=== PATIENT | male | born 1965 | race Caucasian/White ===

== ENCOUNTER → 2019-04-12 | Day surgery (SDC) | payer OTHER ==
[~2019-04-12] MED LIST: CEFAZOLIN/SWI 1gm 1 GM/10 ML SYR ONE; FENTANYL CITR 100 MCG/2 ML ONE; GLYCOPYRROLATE 0.2 MG/ML SYR ONE; HYDROMORPHONE HCL 1 MG/ML INJ ONE; KETOROLAC 30 MG/ML INJ ONE; LIDOCAINE 1% MPF 5 ML VIAL ONE; MIDAZOLAM HCL 2 MG/2 ML INJ ONE; NEOSTIGMINE 1 MG/ML -10 ML VIAL ONE; ONDANSETRON 4 MG/2 ML VIAL ONE; PROMETHAZINE INJ 25 MG/ML AMP ONE; ROCURONIUM 50 MG/5 ML VIAL IV ONE; Ringers Lactate 1,000 ML IV ONE; dexAMETHasone 10 MG/ML VIAL ONE; propofoL 200 MG/20 ML VIAL IV ONE
--- OUTSIDE RECORDS SUMMARY | 2019-04-12 07:43 | XMS REPORT | Summary of Care ---
:1965 Author Organization [facility] - Health Address [address] [place] [address] Care Team Providers Name Role Phone Pcp, Patient Does Not Have A Primary Care Provider Encounter Details Date Type Department Care Team Description 12/09/2018 Orders Only [facility] Doctor Unassigned, No [address] [facility] [place] [address] [address] [place] [address] Allergies No Known Allergiesdocumented as of this encounter (statuses as of 12/09/2018) Medications Medication Sig Dispensed Refills Start Date End Date Status ranitidine (ZANTAC) 150 Take 1 Tab by 30 Tab 5 10/06/2013 Active mg tabletIndications: mouth at bedtime. Reflux esomeprazole (NEXIUM) Take 1 Cap by 30 Cap 5 05/30/2014 Active 40 mg capsule mouth daily with breakfast. fluticasone (FLONASE) Use 2 Sprays in 1 Bottle 5 05/30/2014 Active 50 mcg/actuation nasal each nostril sprayIndications: daily. Unspecified nasal polyp, S/P FESS (functional endoscopic sinus surgery), Anosmia, Rhinitis, allergic documented as of this encounter (statuses as of 12/09/2018) Active Problems Patient Care Coordination Note Weight Loss Plan of Care My Weight Loss Goals are the following: Obtain a healthy BMI (Body Mass Index). My current BMI is: Body mass index is 32.41 kg/(m^2). o Obesity is a BMI above 30. o Overweight is a BMI of 25 to 29.9. Work to lose 10% of my current weight over the next 12 monthsMy Weight Loss Care Plan includes the following: Start exercise:o Star t with light exercise, such as walking and gradually increase how hard I exercise and for how milvia Goal: work up to exercise 4 to 6 times a week for 30 to 60 minutes at a time (minimum 150 minutes per week best for good health) Follow a healthy dieto Journal what I am currently eating and drinking nowo Decrease portion sizes Pay attention to my serving sizes Eat until satisfied rather than full Use smaller plateso Eat fewer empty calories such as desserts, sodas, candy, chipso Focus on eating foods from 5 food group such as fruits, vegetables, whole grains, low fat dairy products and sanjeev n protein foodso When eating out, make better choices Pay attention to what and how much I eat and drink Pay attention to how the food is preparedo Cook more at homeOnline Resource: www.choosemyplate.gov Problem Noted Date Nasal polyp 03/01/2013 documented as of this encounter (statuses as of 12/09/2018) Immunizations Name Administration Dates Next Due Influenza Virus Vaccine (3+ yrs) 03/01/2013 documented as of this encounter Social History Tobacco Use Types Packs/Day Years Used Date Never Smoker Smokeless Tobacco: Never Used Alcohol Use Drinks/Week oz/Week Comments Yes 7-14 Standard drinks or equivalent 3.5 - 7.0 5-6 weekly Sex Assigned at Date Recorded Not on file Job Start Date Occupation Industry Not on file Not on file Not on file Travel History Travel Start Travel End No recent travel history available. documented as of this encounter Last Filed Vital Signs Not on filedocumented in this encounter Plan of Treatment Date Type Specialty Care Team Description 12/09/2018 Office Visit [facility]ology Chapin Grant MD [facility] [address] [id number] [place], [place] [id number] Health Maintenance Due Date Last Done Comments DTaP,Tdap,and Td Vaccines (1 - 08/23/1986 Tdap) COLONOSCOPY 08/23/2017 Zoster Recombinant Vaccine 08/23/2017 (SHINGRIX) (1 of 2) INFLUENZA VACCINE (#1) 2018 03/01/2013 PNEUMOCOCCAL 0-64 YEARS COMBINED Aged Out No longer eligible based on SERIES patient's age to complete this topic documented as of this encounter Implants Implanted Type Area Acid Loader Device Shelf Model / Identifier Expiration Date Serial / Lot Tube, Gyrus Ear Arnaud Vent #[id number] - [id number] Bilateral: Gyrus 12/04/2021 [id number] / Implanted: Qty: 2 on 10/15/2012 by Earl Amor MD at [facility] / [id number] documented as of this encounter Procedures Procedure Name Priority Date/Time Associated Diagnosis Comments [facility] PATIENT FINANCIAL Routine 12/09/2018 11:59 AM POLICY CDT NO SHOW OR MISSED Routine 12/09/2018 11:59 AM APPOINTMENT POLICY CDT ACKNOWLEDGEMENT NOTICE OF PRIVACY Routine 12/09/2018 11:58 AM PRACTICES CDT CONSENT/REFUSAL FOR Routine 12/09/2018 11:58 AM DIAGNOSIS AND TREATMENT CDT ASSIGNMENT OF BENEFITS Routine 12/09/2018 11:57 AM CDT documented in this encounter Results Not on filedocumented in this encounter Insurance Payer Benefit Plan / Group Subscriber ID Effective Dates Phone Address Type AETNA AETNA [facility] [id number] 2017-Present PPO documented as of this encounter
--- OUTSIDE RECORDS SUMMARY | 2019-04-12 07:44 | XMS REPORT | Summary of Care ---
:1965 Author Organization [facility] Address [address] [place] [id number] Care Team Providers Name Role Phone Pcp, Patient Does Not Have A Primary Care Provider Reason for Referral MRI/CAT Scan (Routine) Status Reason Specialty Diagnoses / Referred By Referred To Procedures Contact Contact New Request Diagnostic Diagnoses Hypertrophy of inferior nasal turbinate Nasal obstruction Seasonal allergic rhinitis due to pollen ETD (Eustachian tube dysfunction), bilateral Conductive hearing loss, bilateral Communication impairment Tinnitus, bilateral Chapin Grant, Radiology Procedures CT SINUS W WO CONTRAST [address] [place] [address] [id number] [place] [address] Reason for Visit Reason Comments Follow-up Pt is here today for a f/u from nasal congestion and he had an audio done today as well. Encounter Details Date Type Department Care Team Description 12/09/2018 Office Visit [facility] Ear, Nose Chapin Grant, Hypertrophy of inferior nasal turbinate (Primary Dx); and Throat-Loraine Baires MD Nasal obstruction; [address] Seasonal allergic rhinitis due to pollen; [place] [id number] ETD (Eustachian tube dysfunction), bilateral; [place], [place] Conductive hearing loss, bilateral; [id number] Communication impairment; [phone] Tinnitus, bilateral Allergies No Known Allergiesdocumented as of this encounter (statuses as of 12/09/2018) Medications Medication Sig Dispensed Refills Start End Date Status Date ranitidine (ZANTAC) Take 1 Tab by 30 Tab 5 Active 150 mg mouth at 4 tabletIndications: bedtime. Reflux esomeprazole (NEXIUM) Take 1 Cap by 30 Cap 5 Active 40 mg capsule mouth daily 5 with breakfast. fluticasone (FLONASE) Use 2 Sprays 1 Bottle 5 Active 50 mcg/actuation nasal in each 5 sprayIndications: nostril daily. Unspecified nasal polyp, S/P FESS (functional endoscopic sinus surgery), Anosmia, Rhinitis, allergic methylPREDNISolone Take by mouth 21 Each 0 Active (MEDROL, ROCCO,) 4 mg SEE-INSTRUCTIO 9 tabletsIndications: NS. follow Hypertrophy of package inferior nasal directions turbinate, Nasal obstruction, Seasonal allergic rhinitis due to pollen, ETD (Eustachian tube dysfunction), bilateral, Conductive hearing loss, bilateral, Communication impairment, Tinnitus, bilateral azelastine-fluticasone Use 1 [place] in 23 g 11 Active (DYMISTA) 137-50 each nostril 2 9 mcg/spray nasal (two) times sprayIndications: daily. Hypertrophy of inferior nasal turbinate, Nasal obstruction, Seasonal allergic rhinitis due to pollen, ETD (Eustachian tube dysfunction), bilateral, Conductive hearing loss, bilateral, Communication impairment, Tinnitus, bilateral cefdinir 300 mg Take 1 capsule 28 capsule 0 12/24/19 Active capsuleIndications: by mouth 2 9 19 Hypertrophy of (two) times inferior nasal daily for 14 turbinate, Nasal days. obstruction, Seasonal allergic rhinitis due to pollen, ETD (Eustachian tube dysfunction), bilateral, Conductive hearing loss, bilateral, Communication impairment, Tinnitus, bilateral cefdinir 300 mg Take 1 capsule 14 capsule 0 12/10/19 Discontinued capsuleIndications: by mouth every 9 19 Hypertrophy of 24 inferior nasal (twenty-four) turbinate, Nasal hours for 14 obstruction, Seasonal days. allergic rhinitis due to pollen, ETD (Eustachian tube dysfunction), bilateral, Conductive hearing loss, bilateral, Communication impairment, Tinnitus, bilateral documented as of this encounter (statuses as [...] of this encounter Last Filed Vital Signs Vital Sign Reading Time Taken Comments Blood Pressure - - Pulse - - Temperature 36.9 C (98.5 F) 12/09/2018 1:14 PM CDT Respiratory Rate - - Oxygen Saturation - - Inhaled Oxygen Concentration - - Weight 102.4 kg (225 lb 12.8 oz) 12/09/2018 1:14 PM CDT Height 182.9 cm (6') 12/09/2018 1:14 PM CDT Body Mass Index 30.62 12/09/2018 1:14 PM CDT documented in this encounter Progress Notes Willis Escalona MD - 12/09/2018 1:00 PM CDT Name: Gumaro Armendariz MR No: [id number] Provider: Chapin Grant M.D. Date: 12/09/2018 History: Chief Complaint: Tinnitus, aural fullness, hyposmia History of Present Illness: Gumaro Armendariz is a 53 year old male sp FESS x2 last 2012 for CRS presents with years long sensation of aural fullness and middle ear effusion bilaterally. Patient has had a left sided myringotomy and tubeplacement in 2014. Patient states that following the tube placement patient had resolution of this symptom. Additionally, patient has bilateral continuous tinnitus which has worsened since we saw him last. Finally, patient endorses worsened nasal congestion/obstruction, rhinorrhea, and sneezing in thepast several weeks. He has stable hyposmia present since his last sinus surgery, and denies facial pain /pressure, purulent rhinorrhea. Patient has used topical nasal steroids, oral antihistamines, and singulair in the past but is currently not on any treatment. Past Medical Hx: Past Medical History: Diagnosis Date Allergic rhinitis, cause unspecified Obstructive sleep apnea Pneumothorax, spontaneous, tension Snoring Past Surgical Hx: Past Surgical History: Procedure Laterality Date BALLOON SINUPLASTY (SHX) 10/15/2012 Surgeon: Chapin Grant MD; Location: [facility] BALLOON SINUPLASTY (SHX) 03/14/2013 BALLOON SINUPLASTY (SHX) 03/14/2013 Surgeon: Chapin Grant MD; Location: [facility] CHEST TUBE INSERTION, POST PNE pnuemothorax EXCISION OF UVULA FUNCTIONAL ENDOSCOPIC SINUS SURGERY 10/15/2012 Surgeon: Chapin Grant MD; Location: [facility] OR [facility] FUNCTIONAL ENDOSCOPIC SINUS SURGERY 03/14/2013 FUNCTIONAL ENDOSCOPIC SINUS SURGERY 03/14/2013 Surgeon: Chapin Grant MD; Location: [facility] OR [facility] LUNG CONDITION MYRINGOTOMY MYRINGOTOMY WITH TUBE INSERTION 10/15/2012 Surgeon: Chapin Grant MD; Location: [facility] OR [facility] REPAIR OF NASAL SEPTUM SEPTOPLASTY 03/14/2013 SEPTOPLASTY 03/14/2013 Surgeon: Chapin Grant MD; Location: [facility] OR [facility] TONSILLECTOMY WITH ADENOIDECTOMY TURBINATE REDUCTION 10/15/2012 Surgeon: Chapin Grant MD; Location: [facility] OR [facility] UVULOPHARYNGOPALATOPLASY VASECTOMY VIDEO ASSISTED THORASCOPIC PNEUMONECTOMY (SHX) Family History: Family History Problem Relation Age of Onset No Significant Medical Problems Mother No Significant Medical Problems Father No Significant Medical Problems Brother Genetic Son PKU Genetic Son PKU Social History: Social History Occupational History Occupation: [employer] Employer: [employer] Occupation: teacher Occupation: principal Tobacco Use Smoking status: Never Smoker Smokeless tobacco: Never Used Substance and Sexual Activity Alcohol use: Yes Alcohol/week: 3.5 - 7.0 oz Types: 7 - 14 drink(s) per week Comment: 5-6 weekly Drug use: No Sexual activity: Not on file Medications: Current Outpatient Medications Medication Sig esomeprazole (NEXIUM) 40 mg capsule Take 1 Cap by mouth daily with breakfast. fluticasone (FLONASE) 50 mcg/actuation nasal spray Use 2 Sprays in each nostril daily. ranitidine (ZANTAC) 150 mg tablet Take 1 Tab by mouth at bedtime. Allergies to Meds: Patient has no known allergies. Review of systems: CONSTITUTIONAL: negative; EYES: negative; ENT: See HPI; CARDIOVASCULAR: negative; RESPIRATORY: negative; GASTROINTESTINAL: negative; GENITOURINARY: negative; MUSCULOSKELETAL: negative; SKIN: negative; NEUROLOGICAL: negative; PSYCHIATRIC: negative; ENDOCRINE: negative; HEMATOLOGIC/ LYMPHATIC: negative ; ALLERGIC/ IMMUNOLOGIC: negative. Physical Exam: CONSTITUTIONAL:No acute distress Vital Signs:Temp 36.9 C (98.5 F) (Tympanic) | Ht 6' (1.829 m) | Wt 225 lb 12.8 oz (102.4kg) | BMI 30.62 kg/m EYES:Normal gaze alignment EARS, NOSE, MOUTH, AND THROAT: Otoscopic Examination: Binocular Microscope: RIGHT EAR Ear Canal: Normal. Tympanic Membrane: significant pars flacida retraction without keratin debris. 256: - 512: - 1024: + LEFT EAR Ear Canal: Normal. Tympanic Membrane: mild pars flacida retraction without keratin debris. 256: - 512: + 1024: + External Ears: Unremarkable. External Nose: unremarkable. Nasal Exam: see below. Oral Exam: Unremarkable. Lips, Teeth, and Gums: unremarkable. Larynx: Normal Voice.CARDIOVASCULAR:Extremities were warm. RESPIRATORY:There was normal chest expansion. SKIN:Normal. NEUROLOGICAL:Cranial nerves II-XII intact. PSYCHIATRIC: Normal Affect. HEMATOLOGICAL/ LYMPHATIC:No cervical lymphadenopathy. PROCEDURE: Binocular Microscopy CPT 44106 as described above. PROCEDURE: Diagnostic Nasal Endoscopy CPT 21710 as described above. Procedure Note: Rigid sinonasal endoscopy was performed in clinic for better visualization of the patient's nasal cavity and sinuses. Topical anesthesia and decongestion were used. Using a 0 degree flexible endoscope, the nasal cavity was evaluated. Septum was found to be midline. The inferior turbinates were hypertrophied. The middle turbinate on R was polypoid with polyp in ethmioid cavity and pus surrounding, on the L the middle turbinate was lateralized. The nasopharynx showed cobblestonning. Sphenoethmoidal recess showed purulent drainage. Maxillary sinus unable to visualize. The patient tolerated the procedure well with no complications Risk: moderate DIAGNOSES: ICD-10-CM ICD-9-CM 1. Hypertrophy of inferior nasal turbinate J34.3 478.0 2. Nasal obstruction J34.89 478.19 3. Seasonal allergic rhinitis due to pollen J30.1 477.0 4. ETD (Eustachian tube dysfunction), bilateral H69.83 381.81 5. Conductive hearing loss, bilateral H90.0 389.06 6. Communication impairment F80.9 307.9 7. Tinnitus, bilateral H93.13 388.30 Assessment and Plan: Gumaro Armendariz is a 53 year old male with history of allergy , CRS, tinnitus, and chronic eustachian tube dysfunction which is now deforming his tympanic membranes and acute sinusitistoday on scope. We will treat this acute infection and obtain a CT sinus. This patient very likely will need revision, BMT and sinus surgery. Additionally, this patient would likely benefit from ET dilation. - omnicef 300mg BID for 14 days - medrol dose pack - dymista 1 spray BID - CT sinus following above Willis Escalona MD Otolaryngology--Head and Neck Surgery documented in this encounter Plan of Treatment Date Type Specialty Care Team Description 12/22/2018 Appointment Radiology Chapin Grant MD [address] [facility] [id number] [place] [address] Name Type Priority Associated Diagnoses Order Schedule CT SINUS W WO CONTRAST IMAGING Routine Hypertrophy of inferior Expected: , nasal turbinate Expires: 12/10/2019 Nasal obstruction Seasonal allergic rhinitis due to pollen ETD (Eustachian tube dysfunction), bilateral Conductive hearing loss, bilateral Communication impairment Tinnitus, bilateral Health Maintenance Due Date Last Done Comments DTaP,Tdap,and Td Vaccines (1 - 08/23/1986 Tdap) COLONOSCOPY 08/23/2017 Zoster Recombinant Vaccine 08/23/2017 (SHINGRIX) (1 of 2) INFLUENZA VACCINE (#1) 2018 03/01/2013 PNEUMOCOCCAL 0-64 YEARS COMBINED Aged Out No longer eligible based on SERIES patient's age to complete this topic documented as of this encounter Implants Implanted Type Area Debarker Operator Device Shelf Model / Identifier Expiration Date Serial / Lot Tube, Gyrus Ear Arnaud Vent #[id number] - [id number] Bilateral: Gyrus 12/04/2021 [id number] / Implanted: Qty: 2 on 10/15/2012 by Earl Amor MD at [facility] / [id number] documented as of this encounter Results Not on filedocumented in this encounter Visit Diagnoses Diagnosis Hypertrophy of inferior nasal turbinate - Primary Hypertrophy of nasal turbinates Nasal obstruction Other diseases of nasal cavity and sinuses Seasonal allergic rhinitis due to pollen ETD (Eustachian tube dysfunction), bilateral Conductive hearing loss, bilateral Communication impairment Other and unspecified special symptom or syndrome, not elsewhere classified Tinnitus, bilateral Unspecified tinnitus documented in this encounter (Work) documented as of this encounter"
--- OUTSIDE RECORDS SUMMARY | 2019-04-12 07:44 | XMS REPORT | Summary of Care ---
:1965 Author Organization [facility] Address [address] [place] [address] Care Team Providers Name Role Phone Pcp, Patient Does Not Have A Primary Care Provider Reason for Referral MRI/CAT Scan (Routine) Status Reason Specialty Diagnoses / Referred By Referred To Procedures Contact Contact Closed Diagnostic Diagnoses Hypertrophy of inferior nasal turbinate Nasal obstruction Seasonal allergic rhinitis due to pollen ETD (Eustachian tube dysfunction), bilateral Conductive hearing loss, bilateral Communication impairment Tinnitus, bilateral Chapin Grant MD Radiology Procedures CT SINUS W WO CONTRAST [address] [place] [address] MRI/CAT Scan (Routine) Status Reason Specialty Diagnoses / Referred By Referred To Procedures Contact Contact Closed Diagnostic Diagnoses Hypertrophy of inferior nasal turbinate Nasal obstruction Seasonal allergic rhinitis due to pollen ETD (Eustachian tube dysfunction), bilateral Conductive hearing loss, bilateral Communication impairment Tinnitus, bilateral Chapin Grant MD Radiology Procedures CT SINUS W WO CONTRAST [address] [place] [address] Reason for Visit MRI/CAT Scan (Routine) Status Reason Specialty Diagnoses / Referred By Referred To Procedures Contact Contact Closed Diagnostic Diagnoses Hypertrophy of inferior nasal turbinate Nasal obstruction Seasonal allergic rhinitis due to pollen ETD (Eustachian tube dysfunction), bilateral Conductive hearing loss, bilateral Communication impairment Tinnitus, bilateral Chapin Grant MD Radiology Procedures CT SINUS W WO CONTRAST [address] [place] [address] Encounter Details Date Type Department Care Team Description 12/22/2018 Hospital Encounter [facility] Chapin Powers MD Arrived [facility] [address] Tomography [id number] [address] [place] [address] [phone] Allergies No Known Allergiesdocumented as of this encounter (statuses as of 12/23/2018) Medications Medication Sig Dispensed Refills Start Date End Date Status ranitidine (ZANTAC) 150 Take 1 Tab by 30 Tab 5 10/06/2013 Active mg tabletIndications: mouth at Reflux bedtime. esomeprazole (NEXIUM) 40 Take 1 Cap by 30 Cap 5 05/30/2014 Active mg capsule mouth daily with breakfast. fluticasone (FLONASE) 50 Use 2 Sprays in 1 Bottle 5 05/30/2014 Active mcg/actuation nasal each nostril sprayIndications: daily. Unspecified nasal polyp, S/P FESS (functional endoscopic sinus surgery), Anosmia, Rhinitis, allergic methylPREDNISolone Take by mouth 21 Each 0 12/09/2018 Active (MEDROL, ROCCO,) 4 mg SEE-INSTRUCTIONS tabletsIndications: . follow package Hypertrophy of inferior directions nasal turbinate, Nasal obstruction, Seasonal allergic rhinitis due to pollen, ETD (Eustachian tube dysfunction), bilateral, Conductive hearing loss, bilateral, Communication impairment, Tinnitus, bilateral azelastine-fluticasone Use 1 [place] in 23 g 11 12/09/2018 Active (DYMISTA) 137-50 each nostril 2 mcg/spray nasal (two) times sprayIndications: daily. Hypertrophy of inferior nasal turbinate, Nasal obstruction, Seasonal allergic rhinitis due to pollen, ETD (Eustachian tube dysfunction), bilateral, Conductive hearing loss, bilateral, Communication impairment, Tinnitus, bilateral cefdinir 300 mg Take 1 capsule 28 capsule 0 12/09/2018 Active capsuleIndications: by mouth 2 (two) 9 Hypertrophy of inferior times daily for nasal turbinate, Nasal 14 days. obstruction, Seasonal allergic rhinitis due to pollen, ETD (Eustachian tube dysfunction), bilateral, Conductive hearing loss, bilateral, Communication impairment, Tinnitus, bilateral documented as of this encounter (statuses as of 12/23/2018) Active Problems Patient Care Coordination Note Weight [...] is preparedo Cook more at homeOnline Resource: www.Single Touch Systemsmyplate.gov Problem Noted Date Nasal polyp 03/01/2013 documented as of this encounter (statuses as of 12/23/2018) Immunizations Name Administration Dates Next Due Influenza [...] Treatment Date Type Specialty Care Team Description 12/30/2018 Office Visit Otolaryngology Chapin Grant MD [id number] [place] [address] [phone] Name Type Priority Associated Diagnoses Order Schedule POCT CREATININE LAB Routine Hypertrophy of inferior ONCE for 1 Occurrences nasal turbinate starting 12/22/2018 until Nasal obstruction 12/22/2018 Seasonal allergic rhinitis due to pollen Tinnitus, bilateral Nasal polyp Health Maintenance Due Date Last Done Comments DTaP,Tdap,and Td Vaccines (1 - 08/23/1986 Tdap) COLONOSCOPY 08/23/2017 Zoster Recombinant Vaccine 08/23/2017 (SHINGRIX) (1 of 2) INFLUENZA VACCINE (#1) 2018 03/01/2013 PNEUMOCOCCAL 0-64 YEARS COMBINED Aged Out No longer eligible based on SERIES patient's age to complete this topic documented as of this encounter Implants Implanted Type Area Faculty Research Assistant Device Shelf Model / Identifier Expiration Date Serial / Lot Tube, Gyrus Ear Arnaud Vent #[id number] - [id number] Bilateral: Gyrus 12/04/2021 [id number] / Implanted: Qty: 2 on 10/15/2012 by Earl Amor MD at [facility] / [id number] documented as of this encounter Procedures Procedure Name Priority Date/Time Associated Diagnosis Comments CT SINUS W WO Routine 12/22/2018 4:41 PM Hypertrophy of Results for this CONTRAST CDT inferior nasal procedure are in turbinate the results Nasal obstruction section. Seasonal allergic rhinitis due to pollen ETD (Eustachian tube dysfunction), bilateral Conductive hearing loss, bilateral Communication impairment Tinnitus, bilateral documented in this encounter Results CT SINUS W WO CONTRAST (12/22/2018 4:41 PM CDT) Specimen Impressions Performed At PACS/VR/DOSE Postsurgical changes of FESS, as detailed above. Mild mucosal inflammatory changes of the frontal, ethmoidal and maxillary sinuses with opacification of the frontal osteotomies noted. The remainder of paranasal sinuses and drainage pathways are clear. Narrative Performed At * * * * * * * * ORIGINAL REPORT * * * * * * * * PACS/VR/DOSE EXAM: CT SINUS W WO CONTRAST HISTORY: CRS TECHNIQUE: CT of the paranasal sinuses was performed without intravenous contrast. Sagittal and coronal reformats were generated. COMPARISON: None. FINDINGS: Postsurgical changes of bilateral maxillary antrostomy, partial internal ethmoidectomies, frontal osteotomies and sphenoidotomies noted. Mild mucoperiosteal thickening of the bilateral frontal sinuses. There is complete opacification of the bilateral frontal osteotomies. There is opacification of the residual ethmoidal air cells. Ethmoidal roofs are symmetric. Lamina papyracea is intact bilaterally. Mild mucoperiosteal thickening of the bilateral maxillary sinuses. Antrostomies are patent. The sphenoid sinuses are clear. Sphenoid septum is deviated to the left side and enters into the medial wall of the left carotid canal. Sphenoidotomies are patent. Nasal septum is midline. Turbinates morphology is unremarkable. Nasal cavities are clear. The mastoid air cells are clear. The visualized intracranial structures are unremarkable. Procedure Note [facility], Radiant Results Inft User - 12/22/2018 4:53 PM CDT * * * * * * * * ORIGINAL REPORT * * * * * * * * EXAM: CT SINUS W WO CONTRAST HISTORY: CRS TECHNIQUE: CT of the paranasal sinuses was performed without intravenous contrast. Sagittal and coronal reformats were generated. COMPARISON: None. FINDINGS: Postsurgical changes of bilateral maxillary antrostomy, partial internal ethmoidectomies, frontal osteotomies and sphenoidotomies noted. Mild mucoperiosteal thickening of the bilateral frontal sinuses. There is complete opacification of the bilateral frontal osteotomies. There is opacification of the residual ethmoidal air cells. Ethmoidal roofs are symmetric. Lamina papyracea is intact bilaterally. Mild mucoperiosteal thickening of the bilateral maxillary sinuses. Antrostomies are patent. The sphenoid sinuses are clear. Sphenoid septum is deviated to the left side and enters into the medial wall of the left carotid canal. Sphenoidotomies are patent. Nasal septum is midline. Turbinates morphology is unremarkable. Nasal cavities are clear. The mastoid air cells are clear. The visualized intracranial structures are unremarkable. IMPRESSION Postsurgical changes of FESS, as detailed above. Mild mucosal inflammatory changes of the frontal, ethmoidal and maxillary sinuses with opacification of the frontal osteotomies noted. The remainder of paranasal sinuses and drainage pathways are clear. Performing Organization Address City/State/Zipcode Phone Number PACS/VR/DOSE documented in this encounter Visit Diagnoses Diagnosis Nasal polyp - Primary Unspecified nasal polyp Hypertrophy of inferior nasal turbinate Hypertrophy of nasal turbinates Nasal obstruction Other diseases of nasal cavity and sinuses Seasonal allergic rhinitis due to pollen ETD (Eustachian tube dysfunction), bilateral Conductive hearing loss, bilateral Communication impairment Other and unspecified special symptom or syndrome, not elsewhere classified Tinnitus, bilateral Unspecified tinnitus documented in this encounter Administered Medications Medication Order MAR Action Action Date Dose Rate Site iohexol (OMNIPAQUE 350 BULK-100 Given 12/22/2018 4:38 PM CDT 100 mL mL) injection 100 mL 100 mL, Intravenous, ONCE, 1 dose, 12/22/18 at 1630, Routine documented in this encounter (Work) documented as of this encounter
--- OUTSIDE RECORDS SUMMARY | 2019-04-12 07:44 | XMS REPORT | Summary of Care ---
:1965 Author Organization [facility] - Health Address [address] [place] [address] Care Team Providers Name Role Phone Pcp, Patient Does Not Have A Primary Care Provider Encounter Details Date Type Department Care Team Description 12/22/2018 Orders Only [facility] Doctor Unassigned, No [address] [facility] Name [place] [id number] [address] [place] [address] Allergies No Known Allergiesdocumented as of this encounter (statuses as of 12/22/2018) Medications Medication Sig Dispensed Refills Start Date [...] Communication impairment, Tinnitus, bilateral azelastine-fluticasone Use 1 [place] in 23 g 11 12/09/2018 Active (DYMISTA) [...] as of this encounter (statuses as of 12/22/2018) Active Problems Patient Care Coordination Note Weight [...] as of this encounter (statuses as of 12/22/2018) Immunizations Name Administration Dates Next Due Influenza [...] Appointment Radiology Chapin Grant MD [address] [place], [place] [phone] 12/30/2018 Office Visit Otolaryngology Chapin Grant MD [address] [facility] [address] [place], [place] [phone] Health Maintenance Due Date Last Done Comments DTaP,Tdap,and Td Vaccines (1 - 08/23/1986 Tdap) COLONOSCOPY 08/23/2017 Zoster Recombinant Vaccine 08/23/2017 (SHINGRIX) (1 of 2) INFLUENZA VACCINE (#1) 2018 03/01/2013 PNEUMOCOCCAL 0-64 YEARS COMBINED Aged Out No longer eligible based on SERIES patient's age to complete this topic documented as of this encounter Implants Implanted Type Area Photographic Restorer Device Shelf Model / Identifier Expiration Date Serial / Lot Tube, Gyrus Ear Arnaud Vent #[id number] - [id number] TUBE Bilateral: Gyrus 12/04/2021 [id number] / Implanted: Qty: 2 on 10/15/2012 by Earl Amor MD at [facility] Ear / [id number] documented as of this encounter Procedures Procedure Name Priority Date/Time Associated Diagnosis Comments ASSIGNMENT OF BENEFITS Routine 12/22/2018 3:56 PM CDT documented in this encounter Results Not on filedocumented in this encounter Insurance Payer Benefit Plan / Group Subscriber ID Effective Dates Phone Address Type AETNA AETNA [facility] [id number] 2017-Present PPO documented as of this encounter
--- OUTSIDE RECORDS SUMMARY | 2019-04-12 07:44 | XMS REPORT | Summary of Care ---
:1965 Author Organization [facility] Address [address] [place] [address] Care Team Providers Name Role Phone Pcp, [...] Radiology Procedures CT SINUS W WO CONTRAST [address] [place] [address] [id number] [place] [address] Reason for Visit Reason Comments Follow-up Pt is here today for a f/u from nasal congestion and he had an audio done today as well. Encounter Details Date Type Department Care Team Description 12/09/2018 Office Visit [facility] Ear, Nose Chapin Grnat, Hypertrophy of inferior nasal turbinate (Primary Dx); and Throat-Loraine Baires MD Nasal obstruction; [address] Seasonal allergic rhinitis due to pollen; [place] [id number] ETD (Eustachian tube dysfunction), bilateral; [place], [place] Conductive hearing loss, bilateral; [phone] Communication impairment; [phone] Tinnitus, bilateral Allergies No Known Allergiesdocumented as [...] Communication impairment, Tinnitus, bilateral azelastine-fluticasone Use 1 [place] in 23 g 11 Active (DYMISTA) 137-50 [...] PM CDT Name: Gumaro Armendariz MR No: [id number] Provider: Chapin Grant M.D. Date: 12/09/2018 History: [...] (SHX) 10/15/2012 Surgeon: Chapin Grant MD; Location: [facility] BALLOON SINUPLASTY (SHX) 03/14/2013 BALLOON SINUPLASTY (SHX) 03/14/2013 Surgeon: Chapin Grant MD; Location: [facility] CHEST TUBE INSERTION, POST PNE pnuemothorax EXCISION OF UVULA FUNCTIONAL ENDOSCOPIC SINUS SURGERY 10/15/2012 Surgeon: Chapin Grant MD; Location: [facility] FUNCTIONAL ENDOSCOPIC SINUS SURGERY 03/14/2013 FUNCTIONAL ENDOSCOPIC SINUS SURGERY 03/14/2013 Surgeon: Chapin Grant MD; Location: [facility] LUNG CONDITION MYRINGOTOMY MYRINGOTOMY WITH TUBE INSERTION 10/15/2012 Surgeon: Chapin Grant MD; Location: [facility] REPAIR OF NASAL SEPTUM SEPTOPLASTY 03/14/2013 SEPTOPLASTY 03/14/2013 Surgeon: Chapin Grant MD; Location: [facility] TONSILLECTOMY WITH ADENOIDECTOMY TURBINATE REDUCTION 10/15/2012 Surgeon: Chapin Grant MD; Location: [facility] UVULOPHARYNGOPALATOPLASY VASECTOMY VIDEO ASSISTED THORASCOPIC PNEUMONECTOMY (SHX) Family History: Family History Problem Relation Age of Onset No Significant Medical Problems Mother No Significant Medical Problems Father No Significant Medical Problems Brother Genetic Son PKU Genetic Son PKU Social History: Social History Occupational History Occupation: [employer] Employer: [employer] Occupation: teacher Occupation: principal Tobacco Use Smoking [...] LYMPHATIC:No cervical lymphadenopathy. PROCEDURE: Binocular Microscopy CPT 72608 as described above. PROCEDURE: Diagnostic Nasal Endoscopy CPT 34057 as described above. Procedure Note: Rigid sinonasal [...] Appointment Radiology Chapin Grant MD [address] [facility] [address] [place] [address] Name Type Priority Associated Diagnoses [...] of this encounter Implants Implanted Type Area Locker Room Clerk Device Shelf Model / Identifier Expiration Date Serial / Lot Tube, Gyrus Ear Arnaud Vent #[id number] - [id number] TUBE Bilateral: Gyrus 12/04/2021 [id number] / Implanted: Qty: 2 on 10/15/2012 by Earl Amor MD at [facility] AT [facility] / [id number] documented as of this encounter Results Not [...]
--- OUTSIDE RECORDS SUMMARY | 2019-04-12 07:44 | XMS REPORT | Summary of Care ---
:1965 Author Organization [facility] Address [address] [place] [address] Care Team Providers Name Role Phone Pcp, Patient Does Not Have A Primary Care Provider Reason for Visit Reason Comments Rx Concern/Question pharmacy is needing clarification for Rx Encounter Details Date Type Department Care Team Description 12/09/2018 Telephone [facility] Ear, Nose Chapin Grant, Rx Concern/ Question and Throat-Cedar Crest MD (pharmacy is needing [address] clarification for Rx ) [place] [address] [place] [phone] Allergies No Known Allergiesdocumented as of this [...] Communication impairment, Tinnitus, bilateral azelastine-fluticasone Use 1 [place] in 23 g 11 12/09/2018 Active (DYMISTA) [...] 12/22/2018 Appointment Radiology Chapin Grant MD [address] [facility] [id number] [place] [phone] 12/30/2018 Office Visit Otolaryngology Chapin Grant MD [address] [facility] [id number] [place], [place] [phone] Health Maintenance Due Date Last Done Comments DTaP,Tdap,and Td Vaccines (1 - 08/23/1986 Tdap) COLONOSCOPY 08/23/2017 Zoster Recombinant Vaccine 08/23/2017 (SHINGRIX) (1 of 2) INFLUENZA VACCINE (#1) 2018 03/01/2013 PNEUMOCOCCAL 0-64 YEARS COMBINED Aged Out No longer eligible based on SERIES patient's age to complete this topic documented as of this encounter Implants Implanted Type Area Hand Almond Blancher Device Shelf Model / Identifier Expiration Date Serial / Lot Tube, Gyrus Ear Arnaud Vent #[id number] - [id number] TUBE Bilateral: Gyrus 12/04/2021 [id number] / Implanted: Qty: 2 on 10/15/2012 by Earl Amor MD at [facility] AT [facility] Ear / [id number] documented as of this encounter Results Not on filedocumented in this encounter Insurance Payer Benefit Plan / Group Subscriber ID Effective Dates Phone Address Type AETNA AETNA [facility] [id number] 2017-Present PPO documented as of this encounter
--- OUTSIDE RECORDS SUMMARY | 2019-04-12 07:44 | XMS REPORT ---
:1965 [facility] Address [facility] [address] Owen [address] [place] [address] Care Team Providers Name Role Phone Unavailable Unavailable Unavailable Problems This patient has no known problems. Allergies, Adverse Reactions, Alerts This patient has no known allergies or adverse reactions. Medications This patient has no known medications.
--- OUTSIDE RECORDS SUMMARY | 2019-04-12 07:44 | XMS REPORT | Summary of Care ---
:1965 Author Organization [facility] Address [address] [place] [address] Care Team Providers Name Role Phone Pcp, Patient Does Not Have A Primary Care Provider Reason for Visit Reason Comments Audiological Evaluation TINNITUS Encounter Details Date Type Department Care Team Description 12/09/2018 Ancillary Visit [facility] Ear, Nova Santos, PHD [address] [facility] [id number] [place] [address] [phone] Conductive hearing loss, middle ear (Primary Dx); Nose and 2, [employer] Subjective tinnitus of left ear Throat-[place] [address] [place] [phone] Allergies No Known Allergiesdocumented as of this [...] whole grains, low fat dairy products and kely n protein foodso When eating out, make [...] Signs Not on filedocumented in this encounter Progress Notes Omaira Alex - 12/09/2018 12:15 PM CDTAudiogram/Hearing Evaluation will be scanned and will be available in Chart Review under the Procedures tab. Mercedez Melvin Audiology Medical Administrative Assistant documented in this encounter Plan of Treatment Date Type Specialty Care Team Description 12/22/2018 Appointment Radiology Chapin Grant MD [address] [facility] OS[address] [place], [place] [phone] 12/30/2018 Office Visit Otolaryngology Chapin Grant MD [address] [facility] KO[address] [place], [place] [phone] Health Maintenance Due Date Last Done Comments DTaP,Tdap,and Td Vaccines (1 - 08/23/1986 Tdap) COLONOSCOPY 08/23/2017 Zoster Recombinant Vaccine 08/23/2017 (SHINGRIX) (1 of 2) INFLUENZA VACCINE (#1) 2018 03/01/2013 PNEUMOCOCCAL 0-64 YEARS COMBINED Aged Out No longer eligible based on SERIES patient's age to complete this topic documented as of this encounter Implants Implanted Type Area Configuration Management Manager Device Shelf Model / Identifier Expiration Date Serial / Lot Tube, Gyrus Ear Arnaud Vent #[id number] - [id number] TUBE Bilateral: Gyrus 12/04/2021 [id number] / Implanted: Qty: 2 on 10/15/2012 by Earl Amor MD at [facility] Ear / [id number] documented as of this encounter Results Not on filedocumented in this encounter Visit Diagnoses Diagnosis Conductive hearing loss, middle ear - Primary Subjective tinnitus of left ear documented in this encounter (Home) [place] [address] (Work) documented as of this encounter
--- OUTSIDE RECORDS SUMMARY | 2019-04-12 07:57 | XMS REPORT ---
:1965 [facility] [place] [address] Owen [address] [place] [address] Care Team Providers Name Role Phone Unavailable Unavailable Unavailable Problems This patient has no known problems. Allergies, Adverse Reactions, Alerts This patient has no known allergies or adverse reactions. Medications This patient has no known medications.
[2019-04-12 08:16] LABS: Absolute Lymphocytes (CBC) 1.2 K/uL (0.7-4.9); Basophils % 0.6 % (0-1.3); Hematocrit 42.8 % (39.6-49.0); Lymphocytes % 18.1 % (15.3-44.8); MPV 8.8 fL (7.6-11.3); RBC Red Blood Cell Count 4.72 M/uL (4.33-5.43)
--- NOTE | 2019-04-12 08:21 | RAD REPORT ---
EXAM DESCRIPTION: Yashira Gibson (2 Views)04/12/2019 8:14 am CLINICAL HISTORY: Preop for hernia repair COMPARISON: None FINDINGS: The lungs appear clear of acute infiltrate. The heart is normal size IMPRESSION: No acute abnormalities displayed
[2019-04-12 08:28] LABS: Potassium 3.8 mmol/L (3.5-5.1)
--- NOTE | 2019-04-12 10:42 | P.BOP ---
Preoperative diagnosis: incarcerated umbilical tender hernia Postoperative diagnosis: same Primary procedure: Open repair of incarcerated umbilical tender hernia Mechanical Technician: TAYLA BROWN (GRAVEL SCREENER) Estimated blood loss: <10cc Specimen: hernia sac and content Findings: incarcerated omemtum Anesthesia: General Complications: None Transferred to: Recovery Room Condition: Good
[2019-04-12 13:50] VITALS: BP 130/76; TEMP 97.2; O2SAT 93
--- NOTE | 2019-04-12 16:41 | EKG ---
Test Date: 2018-04-12 Test Time: 09:24:54 Nursing Home Physician: TAYE MEASUREMENT RESULTS: Intervals: Rate: 78 [place]: 190 QRSD: 84 QT: 374 QTc: 426 [place]: P: 30 [place]: 190 QRS: -6 T: 11 INTERPRETIVE STATEMENTS: Normal sinus rhythm Minimal voltage criteria for LVH, may be normal variant Inferior infarct, age undetermined Abnormal ECG Cardioserver Error - Incorrect date on EKG This EKG was performed on 04-12-2019 No previous ECG available for comparison Electronically Signed On 04-12-19 16:40:01 GEOCHEMIST by Luigi Brito
--- NOTE | 2019-04-13 18:55 | OP ---
Date of Procedure: 04/12/2019 Surgeon: Miguel Ángel Amor MD Gis Application Developer: Nina Georges. Preoperative Diagnosis: Incarcerated umbilical tender hernia. Postoperative Diagnosis: Incarcerated umbilical tender hernia. Procedure: Open repair of incarcerated tender umbilical hernia. Estimated Blood Loss: Less than 10 cc. Specimens: Hernia sac and content. Finding: Incarcerated omentum. Indications For Procedure: This is a case of a 53-year-old patient, who comes to us with a tender um bilical hernia. Sent to us by the primary doctor to my office. The hernia was partially reduced. H e feels better but wafer abrading machine tender. The primary doctor was advising him also to have a hernia repair an d me to, so we did it since he was available with benefits, alternatives, and risks fully explained i ncluded but not limited to infection, bleeding, damage to adjacent structures as complication, recurr ence, PR, and even . He also understands this might not relieve the symptoms. He might need mo re than one surgical intervention. He understands he may or may not use mesh placement. The benefit s, alternatives, and risks were fully explained. He understood the importance also of losing weight and avoiding heavy lifting. He signed a consent. The patient also advised to see his gastroenterolo gist if he is suffering from constipation to rule out any mechanical reason for that. Description Of Procedure: Patient was brought to the operating room, placed in supine position. Ane sthesia was done without complication. Abdominal area was prepped and draped in a sterile fashion. Marcaine 0.5% was injected for local anesthetic, followed by sharp incision of the skin in the infrau mbilical region. Incision was carried down to subcutaneous tissue. We noticed a hernia sac. We ope tanya the hernia sac and noticed incarcerated omentum. It was a large one, so we have to examine the a mica. In the area, there was nonviable. We proceeded to ligate that by using between Lyn clamps an d then 0 chromic ties. Before reducing the rest of the omentum back into the abdominal cavity, we ma de sure there was no bleeding and it was viable. The hernia sac and specimen were sent to the pathol ogist. The fascial edges were close. The fascia edge was still strong, so we proceeded to close thi s with a [id number] fashion with #1 Prolene multiple times. Fascia was approximated. The subcu taneous tissue, closed with 3-0 chromic and the skin in a subcuticular fashion with 3-0 chromic. Spo nge count and instrument counts were correct. Patient tolerated the procedure well. Patient was sen t to Recovery in stable condition. ROSSY/LILIAN Voice ID: [id number] Report ID: [id number]
--- NOTE | 2019-04-13 18:56 | DS ---
Diagnosis: Incarcerated tender umbilical hernia. Postoperative Diagnosis: Incarcerated tender umbilical hernia. Procedure: Open repair of incarcerated tender umbilical hernia. Disposition: Home. Activity: As tolerated. No heavy lifting. Followup: Follow up in my office in 1 week. Call for appointment [phone]. Keep area dry for 48 hours, then may shower. Replace the cotton balls after that. Medications: See orders. ROSSY/LILIAN Voice ID: [id number] Report ID: [id number]
== END | disposition home or self-care (01) ==
LOC: OR 07:42
PROVIDERS: ATTEND Surgery
PROC: 0WQF0ZZ Repair Abdominal Wall, Open Approach (ICD-10-PCS; principal; 2019-04-12 08:15)
DX: K42.0 Umbilical hernia with obstruction, without gangrene (principal)
CPT/HCPCS: 93005; 85025; 80048; 36415; 88302; 71046; 49587; J2704; J2710; J2550; J2250; J3010; J1100; J1170; J0690; J7120; J2405